=== PATIENT | male | born 1990 | race American Indian/Alaskan Native ===

== ENCOUNTER 2019-09-11 09:46 | Emergency (ER) | payer SELFPAY ==
--- NOTE | 2019-09-11 13:32 | Emergency Department Report ---
Chief Complaint: Urogenital-Male Stated Complaint: BURING WITH URINATION Time Seen by Provider: 09/11/19 13:28 - HPI History of Present Illness: 29 y/o male comes in for STD possible exposure. Having penile discharge. - Exam Vital Signs: Vital Signs 09/11/19 09:52 Temperature 97.4 F L Pulse Rate 75 Respiratory 18 Rate O2 Sat by Pulse 100 Oximetry Physical Exam: AxO times 3 NAD Ambulatory without difficulties. MSE screening note: Focused history and physical exam performed. Due to findings the following was ordered: 29 y/o male comes in for STD possible exposure. Having penile discharge. Patient referred to Health department. ED Disposition for MSE Condition: Stable Referrals: PRIMARY CARE, [Primary Care Provider] - 3-5 Days
== END 2019-09-11 13:55 | disposition home or self-care (01) ==
LOC: ED 09:46
DX: R36.9 Urethral discharge, unspecified (principal); Z20.2 Contact with and (suspected) exposure to infections with a predominantly sexual mode of transmission
CPT/HCPCS: 99282